=== PATIENT | male | born 1965 | race Caucasian/White ===

== ENCOUNTER 2021-08-28 17:35 | Emergency (ER) | payer OTHER ==
[2021-08-28 18:01] VITALS: BP 139/84; PULSE 83; TEMP 97.6; BMI 27.3
[2021-08-28] MEDS ORDERED: ACETAMINOPHEN 500 MG TABLET (FP) PO ONE (19:18)
[2021-08-28] MEDS ORDERED: KETOROLAC TROMETHAMINE 30 MG/1 ML VIAL IM ONE (19:18)
[2021-08-28] MEDS ORDERED: ACETAMINOPHEN 500 MG TABLET (FP) ONE (19:19)
[2021-08-28] MEDS ORDERED: KETOROLAC TROMETHAMINE 30 MG/1 ML VIAL ONE (19:19)
== END 2021-08-28 20:59 | disposition home or self-care (01) ==
LOC: JERFT 17:35
PROC: 3E0233Z Introduction of Anti-inflammatory into Muscle, Percutaneous Approach (ICD-10-PCS; principal; 2021-08-28)
DX: M25.561 Pain in right knee (principal)
CPT/HCPCS: 73562-TC-RT-FY; 93971-TC; 99284-25

== ENCOUNTER 2021-11-27 06:18 | Day surgery (SDC) | payer OTHER ==
[2021-11-20 13:09] VITALS: BMI 30.1
[2021-11-27] MEDS ORDERED: BUPIVACAINE HCL 100 ML ONE (07:06)
[2021-11-27] MEDS ORDERED: BUPIVACAINE HCL/PF 0.25% (2.5MG/ML) 10 ML VIAL ONE (07:24)
[2021-11-27] MEDS ORDERED: DEXAMETHASONE SOD PHOSPHATE 10 MG/1 ML VIAL ONE (07:33)
[2021-11-27] MEDS ORDERED: BUPIVACAINE HCL/PF 0.5% (5 MG/ML) 30 ML VIAL IJ ONE (07:33)
[2021-11-27] MEDS ORDERED: MIDAZOLAM HCL 2 MG/2 ML SINGLE DOSE VIAL ONE (07:33)
[2021-11-27] MEDS ORDERED: PROPOFOL 40 ML ONE (07:46)
[2021-11-27] MEDS ORDERED: oxyCODONE HCL 5 MG TABLET PO PRN ×2 (09:20)
[2021-11-27] MEDS ORDERED: PROMETHAZINE HCL 25 MG/1 ML VIAL IVPUSH PRN (09:20)
[2021-11-27] MEDS ORDERED: ONDANSETRON 4 MG/2 ML VIAL IVPUSH PRN (09:20)
[2021-11-27 10:32] VITALS: RESP 16; TEMP 97.7
[2021-11-27] MEDS ORDERED: oxyCODONE HCL 5 MG TABLET ONE ×2 (10:35→11:34)
[2021-11-27 10:40] VITALS: PULSE 92
[2021-11-27 12:41] VITALS: BP 146/82
== END 2021-11-27 12:30 | disposition home or self-care (01) ==
LOC: FASU 06:18
PROVIDERS: ATTEND Orthopaedic Surgery Sports Medicine
PROC: 0SBC4ZZ Excision of Right Knee Joint, Percutaneous Endoscopic Approach (ICD-10-PCS; principal; 2021-11-27 08:16)
DX: S83.241A Other tear of medial meniscus, current injury, right knee, initial encounter (principal); M84.453A Pathological fracture, unspecified femur, initial encounter for fracture; M65.161 Other infective (teno)synovitis, right knee; X58.XXXA Exposure to other specified factors, initial encounter; Y93.9 Activity, unspecified; Y92.9 Unspecified place or not applicable
CPT/HCPCS: 0707T; 29881; 73560-TC-RT-FY; 76000-TC-FY; 82962; 94760; J1100